=== PATIENT | female | born 1975 | race Caucasian/White ===

== ENCOUNTER 2017-01-22 07:44 | Emergency (ER) | payer MEDICAID ==
[~2017-01-22] VITALS: Ht 160 cm; Wt 67.5 kg
[2017-01-22 07:53] VITALS: Ht 160 cm; Wt 67.5 kg
--- NOTE | 2017-01-22 08:20 | ERA ---
ER Documentation Chief Complaint Date/Time DATE: 01/22/17 TIME: 08:[address] AND EYE REDNESS HPI 39-year-old female with a history of cough 1 week and a history of a sore throat 1 day. Patient has not taken her medications to relieve the symptoms at this time. Describes small amount of mucus production and yellow to green in color. Patient denies any fever, difficulty breathing, dysphagia, dysarthria , chest pain, shortness of breath. Patient also complains of red eyes bilaterally with the left eye starting first approximately 2-3 days ago and the right one this morning. States that in the morning eyes were shut secondary to discharge. Denies any discharge within the past 1 hour. Denies any pain, headache, thunderclap headache, decrease or changes in vision. ROS All systems reviewed and are negative except as per history of present illness. Medications Home Meds Active Scripts Polymyxin B Sulfate-TMP* (Polymyxin B-TMP Eye Drops*) 10 Ml Drops, 1 DROP LEFT EYE QID for 7 Days, EA Prov:MORGAN VARGHESE PA-C 01/22/17 Ibuprofen* (Motrin*) 600 Mg Tab, 600 MG PO Q6H Y for PAIN AND OR ELEVATED TEMP, #30 TAB Prov:MORGAN VARGHESE PA-C 01/22/17 Dextromethorphan Hb-Promethazine Hcl (Promethazine DM Syrup) 473 Ml Syrup, 2.5 ML PO Q6H Y for COUGH, #4 OZ Prov:MORGAN VARGHESE PA-C 01/22/17 Allergies Allergies: Coded Allergies: No Known Allergy (Unverified , 02/03/16) PMhx/Soc History of Surgery: Yes (s/p D&C 02/03/16) Anesthesia Reaction: No Hx Neurological Disorder: No Hx Respiratory Disorders: No Hx Cardiac Disorders: No Hx Psychiatric Problems: No Hx Miscellaneous Medical Probl: No Hx Alcohol Use: No Hx Substance Use: No Hx Tobacco Use: No Physical Exam Vitals Vital Signs Date Time Temp Pulse Resp B/P Pulse Ox O2 Delivery O2 Flow Rate FiO2 01/22/17 07:53 97.2 79 18 112/64 98 Physical Exam Const: Well-appearing 41-year-old female Head: Atraumatic Eyes: Injected conjunctivae bilaterally ENT: Normal External Ears, Nose and Mouth. Neck: Full range of motion..~ No meningismus. No lymphadenopathy. Resp: Minor rhonchi in the lower lobes bilaterally. Percussion is equal throughout with no dullness. Cardio: Regular rate and rhythm, no murmurs. Abd: Soft, non tender, non distended. Normal bowel sounds Skin: No petechiae or rashes Back: No midline or flank tenderness Ext: No cyanosis, or edema Neur: Awake and alert Psych: Normal Mood and Affect Procedures/MDM Patient is a 41-year-old female with a chief complaint of cough. Patient also complains of bilateral red eyes and pharyngitis. Patient's cough started about 1 week ago and left eye became red approximately 3 days ago with the right eye becoming red this morning. Patient denies any headache or copious discharge from the eyes. Patient's eyes were shut when waking this morning secondary to discharge. Patient denies any pain in the eyes and no foreign body sensation. Physical exam was unremarkable except for bilateral conjunctival injection. Does not have a history of any foreign body material entering I. Will most likely diagnosis at this time is a viral upper respiratory infection/acute bronchitis/viral conjunctivitis versus bacterial conjunctivitis. Chest x-ray was taken to rule out pneumonia and was negative. At this time I have little suspicion for an acute red eye, epiglottitis, pneumonia, asthma, streptococcal pharyngitis. Departure Diagnosis: Primary Impression: Acute bronchitis Qualified Code: J20.9 - Acute bronchitis, unspecified organism Additional Impressions: Pharyngitis, acute Qualified Code: J02.8 - Acute pharyngitis due to other specified organisms Viral conjunctival disease Viral conjunctivitis of both eyes Condition: Stable Additional Instructions: Follow up with your PCP within the next 1-3 days for a more thorough evaluation and a possible referral to a specialist. Return the the emergency department immediately if symptoms worsen or change. If you have any questions regarding medications, ask your pharmacist or us before you leave. If any adverse reactions occur while taking your medications, discontinue the treatment and return to the emergency department immediately. Take your medications as directed, and complete the entire course of treatment. MORGAN VARGHESE PA-C Jan 22, 2017 08:20
--- NOTE | 2017-01-22 10:04 | RADRPT ---
PROCEDURE: XR Chest. CLINICAL INDICATION: Cough TECHNIQUE: Chest PA and lateral. COMPARISON: No comparison available. FINDINGS: The mediastinal structures are unremarkable. The heart is normal in size and configuration. The pu lmonary vascularity is normal. The lung melgoza are unremarkable. No consolidation is identified. The pleural spaces are unremarkable. The axial skeleton is unremarkable. IMPRESSION: No active intrathoracic disease. RPTAT: [facility] .Wilmer Hill MD, MD Date Time Electronically viewed and signed by .Wilmer Hill MD, MD on 01/22/2017 10:04 .B/
[2017-01-22] MEDS ORDERED: D-ME473S18 PO (10:11)
[2017-01-22] MEDS ORDERED: IBUP-1542 PO (10:16)
[2017-01-22] MEDS ORDERED: POLY10DR19 LEFT EYE (10:16)
[2017-01-22 10:29] VITALS: BP 118/72; PULSE 73; RESP 16; TEMP 97.9
== END 2017-01-22 10:26 | disposition home or self-care (01) ==
LOC: FTE 07:44
DX: J20.9 Acute bronchitis, unspecified (principal); H10.9 Unspecified conjunctivitis
CPT/HCPCS: 71020

== ENCOUNTER 2017-04-08 02:43 | Emergency (ER) | payer MEDICAID ==
[~2017-04-08] VITALS: Ht 160 cm; Wt 78.0 kg
[~2017-04-08 02:43] MED LIST: D-ME473S18 PO; IBUP-1542 PO; POLY10DR19 LEFT EYE
[2017-04-08 02:44] VITALS: Ht 160 cm; Wt 78.0 kg
[2017-04-08] MEDS ORDERED: ACETAMINOPHEN 500 MG TAB PO STA (02:58)
--- NOTE | 2017-04-08 03:08 | ERD ---
ER Documentation Chief Complaint Date/Time DATE: 04/08/17 TIME: 03:07 Chief Complaint 11 weeks , vaginal bleeding x 2 days HPI 42-year-old female presents here in emergency department for complaint of vaginal bleeding that started yesterday. Started as spotting, now has heavy bleeding. Patient states that she is passing clots. Patient's complaining of pelvic pain and cramping pain 6/10 scale, accompanying the vaginal bleeding. Patient is approximately 11 weeks . 6 para 3 abortions 2. Patient denies any cramping. Patient denies any fever or chills. ROS All systems reviewed and are negative except as per history of present illness. Medications Home Meds Active Scripts Polymyxin B Sulfate-TMP* (Polymyxin B-TMP Eye Drops*) 10 Ml Drops, 1 DROP LEFT EYE QID for 7 Days, EA Prov:MORGAN VARGHESE PA-C 01/22/17 Ibuprofen* (Motrin*) 600 Mg Tab, 600 MG PO Q6H Y for PAIN AND OR ELEVATED TEMP, #30 TAB Prov:MORGAN VARGHESE PA-C 01/22/17 Dextromethorphan Hb-Promethazine Hcl (Promethazine DM Syrup) 473 Ml Syrup, 2.5 ML PO Q6H Y for COUGH, #4 OZ Prov:MORGAN VARGHESE PA-C 01/22/17 Allergies Allergies: Coded Allergies: No Known Allergy (Unverified , 02/03/16) PMhx/Soc History of Surgery: Yes (s/p D&C 02/03/16) Anesthesia Reaction: No Hx Neurological Disorder: No Hx Respiratory Disorders: No Hx Cardiac Disorders: No Hx Psychiatric Problems: No Hx Miscellaneous Medical Probl: No Hx Alcohol Use: No Hx Substance Use: No Hx Tobacco Use: No FmHx Family History: No coronary disease, No diabetes, No other Physical Exam Vitals Vital Signs Date Time Temp Pulse Resp B/P Pulse Ox O2 Delivery O2 Flow Rate FiO2 04/08/17 02:44 97.8 86 20 124/94 99 Physical Exam GENERAL: The patient is well developed and appropriate for usual state of health, in no apparent distress. CHEST: Clear to auscultation bilaterally. There are no rales, wheezes or rhonchi. HEART: Regular rate and rhythm. No murmurs, clicks, rubs or gallops. No S3 or S4. ABDOMEN: Soft, nontender and nondistended. Good bowel sounds. No rebound or guarding. No gross peritonitis. No gross organomegaly or masses. No Grullon sign or McBurney point tenderness. BACK: No midline or flank tenderness. EXTREMITIES: Equal pulses bilaterally. There is no peripheral clubbing, cyanosis or edema. No focal swelling or erythema. Full range of motion. Grossly neurovascularly intact. NEURO: Alert and oriented. Cranial nerves 2-12 intact. Motor strength in all 4 extremities with 5/5 strength. Sensation grossly intact. Normal speech and gait. SKIN: There is no apparent rash or petechia. The skin is warm and dry. HEMATOLOGIC AND LYMPHATIC: There is no evidence of excessive bruising or lymphedema. No gross cervical, axillary, or inguinal lymphadenopathy. VAGINAL: Moderate amount of blood in the vaginal vault, the cervical os is closed. No cervical motion tenderness or adnexal tenderness noted. Result Diagram: 04/08/17 0310 Results 24 hrs Laboratory Tests Test 04/08/17 03:10 White Blood Count 7.410^3/ul Red Blood Count 4.2010^6/ul Hemoglobin 12.5g/dl Hematocrit 37.4% Mean Corpuscular Volume 89.0fl Mean Corpuscular Hemoglobin 29.8pg Mean Corpuscular Hemoglobin Concent 33.4g/dl Red Cell Distribution Width 13.3% Platelet Count 79694^3/UL Mean Platelet Volume 9.3fl Neutrophils % 60.0% Lymphocytes % 26.6% Monocytes % 8.5% Eosinophils % 3.9% Basophils % 0.5% Nucleated Red Blood Cells % 0.0/100WBC Neutrophils # 4.410^3/ul Lymphocytes # 2.010^3/ul Monocytes # 0.610^3/ul Eosinophils # 0.310^3/ul Basophils # 0.010^3/ul Nucleated Red Blood Cells # 0.010^3/ul Urine Color RED Urine Clarity CLOUDY Urine pH 6.0 Urine Specific Sharon 1.021 Urine Ketones NEGATIVEmg/dL Urine Nitrite NEGATIVEmg/dL Urine Bilirubin NEGATIVEmg/dL Urine Urobilinogen NEGATIVEmg/dL Urine Leukocyte Esterase NEGATIVELeu/ul Urine Microscopic RBC > 182/HPF Urine Microscopic WBC 0/HPF Urine Mucus FEW/HPF Urine Hemoglobin 3+mg/dL Urine Glucose NEGATIVEmg/dL Urine Total Protein 2+mg/dl Beta HCG, Quantitative 963.7mIU/ml Current Medications Medications (Trade) Dose Ordered Sig/Flora Route PRN Reason Start Time Stop Time Status Last Admin Dose Admin Acetaminophen 500 mg 500 mg ONCE STAT PO 04/08/17 02:58 04/08/17 02:59 DC 04/08/17 03:11 Sodium Chloride (NS) 1,000 ml @ 1,000 mls/hr Q1H ONCE IV 04/08/17 03:30 04/08/17 04:29 DC 04/08/17 03:12 Morphine Sulfate (morphine) 4 mg ONCE STAT IV 04/08/17 04:06 04/08/17 04:07 DC 04/08/17 04:13 Ondansetron HCl (Zofran Inj) 4 mg ONCE STAT IV 04/08/17 04:06 04/08/17 04:07 DC 04/08/17 04:11 Patient was given medication for pain here in emergency department, after treatment, patient verbalized feeling much better. Patient's pain is improved.Normal saline IV bolus was given here in emergency department for rehydration, patient tolerated IV fluids. PROCEDURE: US OB. CLINICAL INDICATION: Early with vaginal bleeding TECHNIQUE: Transabdominal and transvaginal views of the pelvis are available for review. COMPARISON: 02/03/2016 FINDINGS: There is a large irregularly shaped intrauterine gestational sac in the lower uterine segment and endocervix. A pole is identified with a crown rump length of 1.47 cm (7 weeks 6 days). No cardiac activity was able to be detected. Gestational age by sac size with mean sac diameter of 3.75 cm would be 9 weeks and 1 day. The ovaries were not seen. No free fluid was seen. IMPRESSION: Ultrasound findings consistent with in progress. pole is identified but no cardiac activity is present. RPTAT: [facility] Physician Astrid Date Time Electronically viewed and signed by Katie Morelos Physician on 04/08/2017 04 :00 LE/ CC: DOT EDMONDSON [employer] Procedures/MDM Medical Decision Making: Patients vaginal bleeding is most likely consistent of possible threatened , most likely failed . Patient does not show any evidence of hypovolemic shock. Patients hemoglobin and hematocrit is stable. There is low suspicion for ectopic . ROSA results show a without any cardiac activity near the cervix BetaHCG Quantitative very low for consistent with . The patient is Rh+, does not need RhoGAM this time. There is no signs of symptoms of dehydration. There is low suspicion for sepsis. Patient appears well and is hemodynamically stable. Disposition: Home. Condition: Stable Prescription: [facility] Instructions: Patient is advised to do bed rest, avoid heavy lifting, and avoid having sex until cleared by OB doctor. Patient is advised to follow up with OB doctor or here at the ER in 48 hours for reevaluation of symptoms, repeat beta HCG quantitative and ultrasound. Patient is advised that is symptoms are worst, severe bleeding, dizziness, severe abdominal pain, fever, worst signs and symptoms to return to the emergency department immediately. Departure Diagnosis: Primary Impression: Vaginal bleeding in patient at less than 20 weeks gestation Condition: Stable Patient Instructions: Possible Miscarriage (Threatened ) Additional Instructions: Patient is advised to do bed rest, avoid heavy lifting, and avoid having sex until cleared by OB doctor. Patient is advised to follow up with OB doctor or here at the ER in 48 hours for reevaluation of symptoms, repeat beta HCG quantitative and ultrasound. Patient is advised that is symptoms are worst, severe bleeding, dizziness, severe abdominal pain, fever, worst signs and symptoms to return to the emergency department immediately. DOT EDMONDSON NP Apr 08, 2017 03:08
[2017-04-08] MEDS ORDERED: SOD CHLORIDE 0.9% 1,000 ML IV ONE (03:30)
[2017-04-08 03:40] LABS: ADD SCAN DIFF NO
[2017-04-08 03:55] LABS: BASOPHILS % 0.5 % (0.0-2.0); EOSINOPHILS # 0.3 10^3/ul (0.0-0.5); EOSINOPHILS % 3.9 % (0.0-7.0); HEMATOCRIT 37.4 % (37.0-47.0); HEMOGLOBIN 12.5 g/dl (12.0-16.0); LYMPHOCYTES % 26.6 % (15.0-51.0); MEAN CORPUSCULAR HEMOGLOBIN 29.8 pg (29.0-33.0); MEAN CORPUSCULAR HGB CONC 33.4 g/dl (32.0-37.0); MEAN PLATELET VOLUME 9.3 fl (7.4-10.4); MONOCYTE # 0.6 10^3/ul (0.3-0.9); MONOCYTES % 8.5 % (0.0-11.0); NEUTROPHIL # 4.4 10^3/ul (1.6-7.5); PLATELET COUNT 291 10^3/UL (140-415); RED CELL DISTRIBUTION WIDTH 13.3 % (11.5-14.5); WHITE BLOOD COUNT 7.4 10^3/ul (4.8-10.8)
[2017-04-08 03:58] LABS: ADD UMIC YES; UR ASCORBIC ACID NEGATIVE (NEGATIVE); UR BILIRUBIN (Dip) NEGATIVE (NEGATIVE); UR BLOOD (Dip) 3+ mg/dL (NEGATIVE); UR CLARITY CLOUDY (CLEAR); UR COLOR RED (YELLOW); UR GLUCOSE (Dip) NEGATIVE (NEGATIVE); UR KETONES (Dip) NEGATIVE (NEGATIVE); UR LEUKOCYTE ESTERASE (Dip) NEGATIVE Leu/ul (NEGATIVE); UR MUCUS FEW /HPF (NONE SEEN); UR NITRITE (Dip) NEGATIVE (NEGATIVE); UR RBC > 182 /HPF (0-5); UR SPECIFIC GRAVITY (Dip) 1.021 (1.003-1.030); UR TOTAL PROTEIN (Dip) 2+ mg/dl (NEGATIVE); UR UROBILINOGEN (Dip) NEGATIVE (NEGATIVE)
--- NOTE | 2017-04-08 04:01 | RADRPT ---
PROCEDURE: US OB. CLINICAL INDICATION: Early with vaginal bleeding TECHNIQUE: Transabdominal and transvaginal views of the pelvis are available for review. COMPARISON: 02/03/2016 FINDINGS: There is a large irregularly shaped intrauterine gestational sac in the lower uterine segment and en docervix. A pole is identified with a crown rump length of 1.47 cm (7 weeks 6 days). No feta l cardiac activity was able to be detected. Gestational age by sac size with mean sac diameter of 3 .75 cm would be 9 weeks and 1 day. The ovaries were not seen. No free fluid was seen. IMPRESSION: Ultrasound findings consistent with in progress. pole is identified but no cardiac a ctivity is present. RPTAT: [facility] Physician Astrid Date Time Electronically viewed and signed by Katie Morelos Physician on 04/08/2017 04:00 ABDIEL/
[2017-04-08] MEDS ORDERED: morphine 4 MG/ML VIAL IV STA (04:06)
[2017-04-08] MEDS ORDERED: ONDANSETRON 4 MG INJ IV STA (04:06)
[2017-04-08] MEDS ORDERED: HYDR-906 PO (04:45)
[2017-04-08 05:00] VITALS: BP 126/71; PULSE 69; RESP 19
== END 2017-04-08 05:01 | disposition home or self-care (01) ==
LOC: FTE 02:43
DX: O20.9 Hemorrhage in early pregnancy, unspecified (principal); R10.2 Pelvic and perineal pain; Z3A.11 11 weeks gestation of pregnancy
CPT/HCPCS: 76801; 76817; 81001; 84702; 85025; 86900; 86901; 88305; J2270; J2405; J7030; Z7610; 36415; 96374; 96375